=== PATIENT | male | born 1970 | race Hispanic/Latino ===

== ENCOUNTER 2017-09-25 22:05 | Observation (INO) | payer BC ==
[2017-09-25] MEDS ORDERED: Sodium Chloride 0.9% 1,000 ML IV STA (22:34)
--- NOTE | 2017-09-25 22:36 | ED PDOC ---
Syncope/Near Syncope/Dizziness Time Seen by Provider: 09/25/17 22:13 Chief Complaint (Nursing): GI Problem Chief Complaint (Provider): Syncope History Per: Patient, Family () History/Exam Limitations: no limitations Current Symptoms Are (Timing): Still Present Number Of Syncopal Episodes: 1 Associated Symptoms Preceding Syncopal Episode: Lightheadedness Seizure Or Post-ictal Symptoms: None Fall Associated With With Symptoms: No Severity: None Additional Complaint(s): 46 year old male with a past medical history of hypertension presents to the emergency department with his after a post-syncopal episode. The patient reports that for the past day he has been feeling tired, nauseous and weak. He further states that tonight he went out for dinner and after began to feel dizzy and lightheaded and then lost consciousness. The reports that the patient lost consciousness for a few seconds. She states that when the patient regained consciousness he was pale and seemed to e disoriented and confused. Denies shortness of breath, leg pain, back pain, abdominal pain, chest pain, headache. Had vomit during syncope episode. No numbness, tingles. No headache, neck pain, cough. Of note: Patient states that he does take benecar but he is not compliant with the medication. PMD: Karla Hayden Past Medical History Reviewed: Historical Data, Nursing Documentation, Vital Signs Vital Signs: Last Vital Signs Temp 97.7 F 09/25/17 22:08 Pulse 94 H 09/25/17 22:08 Resp 16 09/25/17 22:08 BP 115/82 09/25/17 22:08 Pulse Ox 100 09/25/17 22:08 - Medical History PMH: HTN (no meds) - Surgical History Surgical History: No Surg Hx - Family History Family History: States: Unknown Family Hx (pt. was adopted and is unaware of family hx) - Living Arrangements Living Arrangements: With Family - Home Medications Home Medications: Ambulatory Orders Medication Instructions Recorded Olmesartan Medoxomil [Benicar] 5 mg PO DAILY #7 tablet 12/07/15 - Allergies Allergies/Adverse Reactions: Allergies Allergy/AdvReac Type Severity Reaction Status Date / Time No Known Allergies Allergy Verified 09/25/17 22:08 Review of Systems ROS Statement: Except As Marked, All Systems Reviewed And Found Negative Cardiovascular: Positive for: Light Headedness. Negative for: Chest Pain Respiratory: Negative for: Shortness of Breath Gastrointestinal: Positive for: Nausea. Negative for: Vomiting, Abdominal Pain , Diarrhea Neurological: Positive for: Dizziness, Other (post syncopal episode). Negative for: Headache Physical Exam - Reviewed Nursing Documentation Reviewed: Yes Vital Signs Reviewed: Yes - Physical Exam Appears: Positive for: Non-toxic, Uncomfortable Head Exam: Positive for: ATRAUMATIC, NORMAL INSPECTION, NORMOCEPHALIC Skin: Positive for: Normal Color, Warm, Dry. Negative for: Rash Eye Exam: Positive for: Normal appearance, EOMI, PERRL. Negative for: Nystagmus ENT: Positive for: Normal ENT Inspection. Negative for: Nasal Congestion, Tonsillar Exudate, Tonsillar Swelling Neck: Positive for: Normal, Painless ROM, Supple Cardiovascular/Chest: Positive for: Regular Rate, Rhythm, Chest Non Tender. Negative for: Tachycardia Respiratory: Positive for: Normal Breath Sounds. Negative for: Rales, Rhonchi, Wheezing, Respiratory Distress Gastrointestinal/Abdominal: Positive for: Normal Exam, Bowel Sounds, Soft. Negative for: Tenderness, Mass, Guarding, Rebound Back: Positive for: Normal Inspection. Negative for: L CVA Tenderness, R CVA Tenderness Extremity: Positive for: Normal ROM. 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 Negative for: Motor/Sensory Deficits, Aphasia, Facial Droop - ECG O2 Sat by Pulse Oximetry: 100 - CT Scan/US head Other Rad Studies (CT/US): Read By Radiologist Other Rad Interpretation: no acute - Progress ED Course And Treament: 2359: Stable. AAOx3. Dr. Anderson to take over care and fu on labs/imaging. PCP [facility]. Disposition - Clinical Impression Clinical Impression: Syncope - Patient ED Disposition Is Patient to be Admitted: Transfer of Care - Disposition Disposition: Transfer of Care Disposition Time: 00:00 Condition: FAIR Patient Signed Over To: Luigi Anderson
--- NOTE | 2017-09-25 23:22 | CT ---
EXAM: CT Head Without Intravenous Contrast CLINICAL HISTORY: 46 years old, male; Signs and symptoms; Other: +loc passed out syncope; Patient HX: HTN; Additional info: Headache TECHNIQUE: Axial computed tomography images of the head/brain without intravenous contrast. All CT scans at this facility use one or more dose reduction techniques, viz.: automated exposure control; ma/kV adjustment per patient size (including targeted exams where dose is matched to indication; i.e. head); or iterative reconstruction technique. Coronal and sagittal reformatted images were created and reviewed. COMPARISON: No relevant prior studies available. FINDINGS: Brain: Mild atrophy. No intracranial hemorrhage. No mass. No definite edema. Ventricles: No hydrocephalus. Bones/joints: No acute fracture. Soft tissues: Unremarkable. Sinuses: No acute sinusitis. Mastoid air cells: No mastoid effusion. Orbits: Unremarkable as visualized. IMPRESSION: 1. No definite acute intracranial abnormality. 2. Incidental/non-acute findings are described above.
[2017-09-25 23:39] LABS: BASO % 0.6 % (0.0-2.0); EOS # 0.2 K/uL (0.0-0.7); LYMPH # 0.9 K/uL (1.0-4.3); MEAN CELL VOLUME 89.2 fl (80.0-94.0); MONO # 0.4 K/uL (0.0-0.8); WHITE BLOOD COUNT 5.5 K/uL (4.8-10.8)
[2017-09-25 23:45] LABS: HEMOGLOBIN 11.2 g/dL (12.0-18.0); MEAN CORPUSCULAR HEMOGLOBIN 31.8 pg (27.0-31.0); MEAN CORPUSCULAR HGB CONC 35.7 g/dL (33.0-37.0); MONO % 6.9 % (0.0-10.0); NEUT % 71.5 % (50.0-75.0); RBC 3.53 Mil/uL (4.40-5.90); RED CELL DISTRIBUTION WIDTH 13.2 % (11.5-14.5)
[2017-09-25 23:59] LABS: ALB/GLOB RATIO 1.3 (1.0-2.1); ALBUMIN 3.4 g/dL (3.5-5.0); ALT/SGPT 37 U/L (21-72); AST/SGOT 17 U/L (17-59); BLOOD UREA NITROGEN 44 mg/dl (9-20); CALCIUM 8.8 mg/dL (8.4-10.2); GFR AFRICAN-AMERICAN > 60; GFR NON-AFRICAN AMERICAN 59
--- NOTE | 2017-09-26 00:22 | ED PDOC ---
- Laboratory Results Result Diagrams: 09/25/17 23:15 09/25/17 23:15 - ECG O2 Sat by Pulse Oximetry: 100 (RA) Pulse Ox Interpretation: Normal Medical Decision Making Medical Decision Making: Receiving sign out: Patient signed out to me by Dr. Stout at 00:00 pending labs, re-evaluation and possible admission. Time: 0130 Labs reviewed and are consistent with dehydration given elevated BUN. Patient reports mild improvement in his symptoms but feels somewhat weak. Case referred to Dr. Case, medicine agronomy technician who is covering Dr. Ames. Patient to be admitted for syncope, dehydration. Scribe Attestation: Documented by Sherri Huertas acting as a scribe for Luigi Anderson MD. Provider Attestation: All medical record entries made by the Scribe were at my direction and personally dictated by me. I have reviewed the chart and agree that the record accurately reflects my personal performance of the history, physical exam, medical decision making, and the department course for this patient. I have also personally directed, reviewed, and agree with the discharge instructions and disposition. Disposition - Clinical Impression Clinical Impression: Syncope - POA Present On Arrival: None - Disposition Disposition: Hospitalized as Observation Patient Disposition Time: 01:13 Condition: FAIR
[2017-09-26 01:19] LABS: INR 1.1 (0.9-1.2); PARTIAL THROMBOPLASTIN TIME 25.6 Seconds (25.6-37.1); PROTHROMBIN TIME 12.6 Seconds (9.8-13.1)
[2017-09-26] MEDS ORDERED: Sodium Chloride 0.9% 1,000 ML IV STA (01:30)
[2017-09-26] MEDS ORDERED: Alum-Mag Hydrox-Simethicone Susp (30 mL) PO STA (05:12)
[2017-09-26] MEDS ORDERED: Alum-Mag Hydrox-Simethicone Susp (30 mL) ONE (05:12)
[2017-09-26] MEDS ORDERED: Sodium Chloride 0.9% 1,000 ML IV SCH (07:45)
[2017-09-26] MEDS ORDERED: Potassium Chloride 10 mEq ER Tab PO ONE (08:36)
[2017-09-26] MEDS ORDERED: Potassium Chloride 20 mEq ER Tab PO ONE ×2 (08:41→10:00)
[2017-09-26] MEDS ORDERED: Enoxaparin 40 mg Syringe SC SCH (09:00)
--- NOTE | 2017-09-26 09:35 | CARD ---
APPROVED REPORT EKG Measurement Heart [id number] <Conclusion> Normal sinus rhythm Nonspecific T wave abnormality Abnormal ECG
--- NOTE | 2017-09-26 13:51 | CP.PCM.HP ---
History of Present Illness - History of Present Illness History of Present Illness: CC: Passed out History of Present Ilness: A 46 year old male with a past medical history of hypertension presents to the emergency department with his after a post-syncopal episode. The patient reports that for the past day he has been feeling tired, nauseous and weak. He further states that tonight he went out for dinner and after began to feel dizzy and lightheaded and then lost consciousness. The reports that the patient lost consciousness for a few seconds. She states that when the patient regained consciousness he was pale and seemed to e disoriented and confused. Denies shortness of breath, leg pain, back pain, abdominal pain, chest pain, headache. Had vomit during syncope episode but patient does not remember. No weakness, numbness, tingles. No headache, neck pain, cough. Of note: Patient states that he does take benecar irregularly but he is not compliant with the medication. Present on Admission - Present on Admission Any Indicators Present on Admission: No Review of Systems - Review of Systems All systems: reviewed and no additional remarkable complaints except - Cardiovascular Cardiovascular: As Per HPI. absent: Chest Pain, Chest Pain at Rest, Chest Pain with Activity, Claudication, Diaphoresis, Dyspnea, Dyspnea on Exertion, Edema, Leg Edema Past Patient History - Past Medical History & Family History Past Medical History?: Yes Past Family History: Reviewed and not pertinent Pertinent Family History: Adopted, and unaware of his biological Family Hsitory Has 2 children. - Past Social History Smoking Status: Never Smoked - CARDIAC Hx Cardiac Disorders: Yes (HTN) - MUSCULOSKELETAL/RHEUMATOLOGICAL Hx Gout: Yes - PSYCHIATRIC Hx Substance Use: No - SURGICAL HISTORY Hx Musculoskeletal Surgery: Yes (left knee arthoscopic) Meds Allergies/Adverse Reactions: Allergies Allergy/AdvReac Type Severity Reaction Status Date / Time chicken derived Allergy SHORTNESS Verified 09/26/17 08:43 OF BREATH Penicillins Allergy RASH Verified 09/26/17 08:43 Physical Exam - Constitutional Appears: Well, No Acute Distress - Head Exam Head Exam: ATRAUMATIC, NORMAL INSPECTION, NORMOCEPHALIC - Eye Exam Eye Exam: EOMI, Normal appearance, PERRL Pupil Exam: NORMAL ACCOMODATION, PERRL - ENT Exam ENT Exam: Mucous Membranes Moist, Normal Exam - Neck Exam Neck exam: Positive for: Normal Inspection - Respiratory Exam Respiratory Exam: Clear to Auscultation Bilateral, NORMAL BREATHING PATTERN - Cardiovascular Exam Cardiovascular Exam: REGULAR RHYTHM, +S1, +S2 - GI/Abdominal Exam GI & Abdominal Exam: Normal Bowel Sounds, Soft. absent: Tenderness - Extremities Exam Extremities exam: Positive for: full ROM, normal capillary refill, normal inspection - Back Exam Back exam: FULL ROM, NORMAL INSPECTION - Neurological Exam Neurological exam: Alert, CN II-XII Intact, Normal Gait, Oriented x3, Reflexes Normal - Psychiatric Exam Psychiatric exam: Normal Affect, Normal Mood - Skin Skin Exam: Dry, Intact, Normal Color, Warm Results - Vital Signs Recent Vital Signs: Last Vital Signs Temp 98.3 F 09/26/17 13:16 Pulse 78 09/26/17 13:16 Resp 18 09/26/17 13:16 BP 118/71 09/26/17 13:16 Pulse Ox 99 09/26/17 13:16 - Labs Result Diagrams: 09/26/17 14:41 09/26/17 14:41 Labs: Laboratory Results - last 24 hr 09/25/17 09/25/17 09/25/17 22:41 23:15 23:15 WBC 5.5 RBC 3.53 L Hgb 11.2 L Hct 31.5 L MCV 89.2 MCH 31.8 H MCHC 35.7 RDW 13.2 Plt Count 181 MPV 10.0 Neut % (Auto) 71.5 Lymph % (Auto) 17.0 L [place] % (Auto) 6.9 Eos % (Auto) 4.0 Baso % (Auto) 0.6 Neut # (Auto) 4.0 Lymph # (Auto) 0.9 L [place] # (Auto) 0.4 Eos # (Auto) 0.2 Baso # (Auto) 0.0 PT INR APTT Sodium 143 Potassium 3.4 L Chloride 106 Carbon Dioxide 19 L Anion Gap 21 H BUN 44 H Creatinine 1.3 Est GFR ( Amer) > 60 Est GFR (Non-Af Amer) 59 POC Glucose (mg/dL) 139 H Random Glucose 143 H Calcium 8.8 Total Bilirubin 0.3 AST 17 ALT 37 Alkaline Phosphatase 42 Troponin I < 0.0120 Total Protein 6.0 L Albumin 3.4 L D Globulin 2.6 Albumin/Globulin Ratio 1.3 09/25/17 09/26/17 23:15 07:30 WBC RBC Hgb Hct MCV MCH MCHC RDW Plt Count MPV Neut % (Auto) Lymph % (Auto) [place] % (Auto) Eos % (Auto) Baso % (Auto) Neut # (Auto) Lymph # (Auto) [place] # (Auto) Eos # (Auto) Baso # (Auto) PT 12.6 INR 1.1 APTT 25.6 Sodium Potassium Chloride Carbon Dioxide Anion Gap BUN Creatinine Est GFR ( Amer) Est GFR (Non-Af Amer) POC Glucose (mg/dL) Random Glucose Calcium Total Bilirubin AST ALT Alkaline Phosphatase Troponin I < 0.0120 Total Protein Albumin Globulin Albumin/Globulin Ratio - EKG Data EKG Interpreted by: Myself EKG shows normal: Sinus rhythm, [place], Intervals, QRS complexes, ST-T waves Rate: Normal - Imaging and Cardiology CT scan - head Status: Report reviewed by me Additional comment: No Acute finding Assessment & Plan (1) Syncope Assessment and Plan: No CArdiac Arrhythmia on the Monitor Admit for Telmetry observation ASa IVF Serial Trop and EKG being done Echo and CArdiac Stress Hold Benicar as BP without Medication has been on the Lower side. Status: Acute (2) Anemia Assessment and Plan: Anemia work up FOB Ferrous sulfate I have spoken to the patient about the need to follow up with GI and PCP. Status: Acute Priority: Medium (3) Benign essential HTN Assessment and Plan: Hold BP medication as Blood pressure is well controlled without medication, and possible Prandial Hypotensuion pptated by BP medicatin few hrs before the Meal Might have passing out. Status: Acute
[2017-09-26 14:38] VITALS: RESP 20
[2017-09-26 15:23] LABS: HEMOGLOBIN 9.9 g/dL (12.0-18.0); MEAN CELL VOLUME 90.1 fl (80.0-94.0); MEAN CORPUSCULAR HGB CONC 34.4 g/dL (33.0-37.0); RBC 3.19 Mil/uL (4.40-5.90); RED CELL DISTRIBUTION WIDTH 13.5 % (11.5-14.5); WHITE BLOOD COUNT 3.5 K/uL (4.8-10.8)
[2017-09-26 15:37] LABS: BLOOD UREA NITROGEN 27 mg/dl (9-20); CALCIUM 8.6 mg/dL (8.4-10.2); GFR AFRICAN-AMERICAN > 60; GFR NON-AFRICAN AMERICAN > 60
[2017-09-26 16:12] VITALS: O2SAT 97
[2017-09-26 19:31] VITALS: BP 134/82; TEMP 98.3
[2017-09-26 20:42] VITALS: PULSE 84
--- NOTE | 2017-09-27 08:30 | CP.PCM.DIS ---
Provider - Provider Date of Admission: 09/26/17 00:41 Attending physician: Perri Case MD Time Spent in preparation of Discharge (in minutes): 25 Diagnosis - Discharge Diagnosis (1) Anemia Status: Acute Priority: Medium (2) Hypertension Status: Acute (3) Syncope Status: Acute Hospital Course - Lab Results Lab Results: Most Recent Lab Values WBC 3.5 K/uL (4.8-10.8) L 09/26/17 14:41 RBC 3.19 Mil/uL (4.40-5.90) L 09/26/17 14:41 Hgb 9.9 g/dL (12.0-18.0) L 09/26/17 14:41 Hct 28.8 % (35.0-51.0) L 09/26/17 14:41 MCV 90.1 fl (80.0-94.0) 09/26/17 14:41 MCH 31.0 pg (27.0-31.0) 09/26/17 14:41 MCHC 34.4 g/dL (33.0-37.0) 09/26/17 14:41 RDW 13.5 % (11.5-14.5) 09/26/17 14:41 Plt Count 182 K/uL (130-400) 09/26/17 14:41 MPV 10.0 fl (7.2-11.7) 09/25/17 23:15 Neut % (Auto) 71.5 % (50.0-75.0) 09/25/17 23:15 Lymph % (Auto) 17.0 % (20.0-40.0) L 09/25/17 23:15 [place] % (Auto) 6.9 % (0.0-10.0) 09/25/17 23:15 Eos % (Auto) 4.0 % (0.0-4.0) 09/25/17 23:15 Baso % (Auto) 0.6 % (0.0-2.0) 09/25/17 23:15 Neut # (Auto) 4.0 K/uL (1.8-7.0) 09/25/17 23:15 Lymph # (Auto) 0.9 K/uL (1.0-4.3) L 09/25/17 23:15 [place] # (Auto) 0.4 K/uL (0.0-0.8) 09/25/17 23:15 Eos # (Auto) 0.2 K/uL (0.0-0.7) 09/25/17 23:15 Baso # (Auto) 0.0 K/uL (0.0-0.2) 09/25/17 23:15 PT 12.6 Seconds (9.8-13.1) 09/25/17 23:15 INR 1.1 (0.9-1.2) 09/25/17 23:15 APTT 25.6 Seconds (25.6-37.1) 09/25/17 23:15 Sodium 142 mmol/l (132-148) 09/26/17 14:41 Potassium 4.4 MMOL/L (3.6-5.0) 09/26/17 14:41 Chloride 108 mmol/L (98-107) H 09/26/17 14:41 Carbon Dioxide 21 mmol/L (22-30) L 09/26/17 14:41 Anion Gap 17 (10-20) 09/26/17 14:41 BUN 27 mg/dl (9-20) H 09/26/17 14:41 Creatinine 1.2 mg/dl (0.8-1.5) 09/26/17 14:41 Est GFR ( Amer) > 60 09/26/17 14:41 Est GFR (Non-Af Amer) > 60 09/26/17 14:41 POC Glucose (mg/dL) 139 mg/dL (65-110) H 09/25/17 22:41 Random Glucose 108 mg/dL (75-110) 09/26/17 14:41 Calcium 8.6 mg/dL (8.4-10.2) 09/26/17 14:41 Total Bilirubin 0.3 mg/dl (0.2-1.3) 09/25/17 23:15 AST 17 U/L (17-59) 09/25/17 23:15 ALT 37 U/L (21-72) 09/25/17 23:15 Alkaline Phosphatase 42 U/L (38-126) 09/25/17 23:15 Troponin I < 0.0120 ng/mL (0.00-0.120) 09/26/17 17:22 Total Protein 6.0 G/DL (6.3-8.2) L 09/25/17 23:15 Albumin 3.4 g/dL (3.5-5.0) L D 09/25/17 23:15 Globulin 2.6 gm/dL (2.2-3.9) 09/25/17 23:15 Albumin/Globulin Ratio 1.3 (1.0-2.1) 09/25/17 23:15 Discharge Exam - Head Exam Head Exam: ATRAUMATIC, NORMAL INSPECTION, NORMOCEPHALIC Discharge Plan - Follow Up Plan Condition: FAIR Disposition: HOME/ ROUTINE Instructions: Syncope (DC) Additional Instructions: follow up with primary md as soon as possible. follow up with gastointestinal md as soon as possible. return to emergency room for any bleeding, increase in stomach pain.. stop benicar.
== END 2017-09-26 20:05 | disposition home or self-care (01) ==
LOC: H.ER 22:05 → H.ERHOLD 09-26 00:41 → H.TEL 09-26 09:50
PROVIDERS: ADMIT Internal Medicine; ATTEND Internal Medicine
DX: D64.9 Anemia, unspecified (principal); R55 Syncope and collapse; E86.0 Dehydration; I10 Essential (primary) hypertension
CPT/HCPCS: 70450; 80048; 80053; 82948; 84484; 85025; 85027; 85610; 85730; 93005; 96360; 99285; G0378; J2405; J7040